=== PATIENT | male | born 1990 | race Caucasian/White ===

== ENCOUNTER 2016-09-27 13:54 | Emergency (ER) | payer OTHER | END 2016-09-27 15:07 | disposition home or self-care (01) | LOC: CFTX 13:54 | DX: L02.212 Cutaneous abscess of back [any part, except buttock and flank] (principal); F17.210 Nicotine dependence, cigarettes, uncomplicated | CPT/HCPCS: 10060; 10061; 87070; 87077; 87186; 87205; 99283 ==